=== PATIENT | male | born 1980 | race Two or more races ===

== ENCOUNTER 2018-05-05 01:02 | Emergency (ER) | payer BC, MEDICAID ==
[~2018-05-05] VITALS: Ht 170.2 cm; Wt 72.1 kg
[~2018-05-05 01:02] MED LIST: BACTRIM-DS1 EA ORAL; KEFLEX500 MG ORAL; NORCO 5-325 TA1 EACH ORAL; VALIUM10 MG ORAL
[2018-05-05] MEDS ORDERED: NKM (01:17)
[2018-05-05 01:30] VITALS: BP 113/71
--- NOTE | 2018-05-05 01:30 | NUR ---
ED Nurse Note: RECIEVED PT BIBA FROM HOME WITH C/O NECK AND POSTERIOR HEAD PAIN S/P FELL IN SHOWER ABOUT 5PM, DENIES K.O BUT C/O PAIN AT 10/10, PT IS ANXIOUS AND ASKING FOR "SHOT" MEDICATION, AT BEDSIDE TO ASSESS, INFORMED PT OF MED TO BE GIVEN AND PT ANGRY, TOLD PT MOTRIN AND PT WANTS STRONGER MEDICATION, PT TOOK OF ALL EQUIPMENT AND AMBULATED IN DEPARTMENT WHEN HE ARRIVED HE STATED HE COULD NOT WALK, PT IS NOW LEAVING MD [facility] AND CHARGE NURSE AWARE. PT AMBULATING WELL WITH STEADY GAIT, NO SOB OR LABORED BREATHING NOTED. PT REFUSED TO SIGN AMA FORM.
--- NOTE | 2018-05-05 01:31 | Emergency Room Report ---
History of Present Illness General Chief Complaint: Multiple Trauma/Fall Source: Patient, Medical Record Present Illness HPI Is a 37-year-old male with chronic pain issue. He presents with chief complaint of migraine, neck pain, back pain status post fall. He claimed that he was getting out of the shower and slipped on the water and hit his head. This occurred just prior to arrival. Pain is 10 out of 10. So pain for the point that he can't walk. No nausea no vomiting. No fever chills but nothing made it better. Movement makes it worse. Allergies: Coded Allergies: No Known Allergies (Unverified , 07/17/12) Patient History Past Medical History: see triage record, old chart reviewed Past Surgical History: none Pertinent Family History: none Social History: Denies: smoking Immunizations: other Reviewed Nursing Documentation: PMH: Agreed; PSxH: Agreed Nursing Documentation-PMH Hx Gastrointestinal Problems: Yes - Chrohns. History Of Psychiatric Problem: Yes - anxiety Hx Neurological Problems: Yes - Migraine headaches, chronic back pain Hx Seizures: Yes Review of Systems Eye: Denies: eye pain, blurred vision ENT: Denies: ear pain, nose congestion, throat swelling Respiratory: Denies: cough, shortness of breath Cardiovascular: Denies: chest pain, palpitations Gastrointestinal: Denies: abdominal pain, diarrhea, nausea, vomiting Musculoskeletal: Reports: back pain, joint pain Skin: Denies: rash Neurological: Denies: headache, numbness Endocrine: Denies: increased thirst, increased urine Hematologic/Lymphatic: Denies: easy bruising All Other Systems: negative except mentioned in HPI Physical Exam Vital Signs Date Time Temp Pulse Resp B/P (MAP) Pulse Ox O2 Delivery O2 Flow Rate FiO2 05/05/18 01:12 98.1 77 16 113/71 98 Room Air vitals normal Sp02 EP Interpretation: reviewed, normal General Appearance: well appearing, no apparent distress, alert Head: normocephalic, atraumatic Eyes: bilateral eye PERRL, bilateral eye EOMI ENT: hearing grossly normal, normal pharynx Neck: full range of motion, supple, no meningismus, tender - Diffuse tenderness. No evidence of any trauma Respiratory: chest non-tender, lungs clear, normal breath sounds Cardiovascular #1: regular rate, rhythm, no murmur Gastrointestinal: normal bowel sounds, non tender, no mass, no organomegaly, no bruit, non-distended Musculoskeletal: back normal, gait/station normal, normal range of motion Psychiatric: mood/affect normal Skin: warm/dry Medical Decision Making Diagnostic Impression: Primary Impression: Multiple injuries due to trauma Additional Impressions: Neck pain Drug-seeking behavior ER Course Patient with drug seeking behavior. He has chronic pain. He is prescribed Suboxone, Soma, Xanax. Patient claimed that he is not taking Suboxone anymore. He's been on Suboxone for a year. He just got 90 tablets on 05/02/2018. He claimed that he threw them away. He requesting a shot of pain medication. I offered the patient Motrin and x-rays to confirm any trauma. Patient was agitated and combative because refuse to give him any narcotics. I explained to the patient that since he is on Suboxone, opiates would not be helpful. I am uncomfortable prescribing more pain medication on the controlled substance he is already taking. Initially patient required wheelchair to get to the bed. But he was able to hop off the bed and confront me at the doctor's desk. He walk without any difficulty. Last Vital Signs Date Time Temp Pulse Resp B/P (MAP) Pulse Ox O2 Delivery O2 Flow Rate FiO2 05/05/18 01:12 98.1 77 16 113/71 98 Room Air Status: unchanged Disposition: AGAINST MEDICAL ADVICE Condition: Stable Jose Esquivel MD May 05, 2018 01:31
== END 2018-05-05 01:30 | disposition left against medical advice (07) ==
LOC: EMR 01:25
DX: G89.29 Other chronic pain (principal); G43.909 Migraine, unspecified, not intractable, without status migrainosus; M54.2 Cervicalgia; M54.9 Dorsalgia, unspecified; W18.2XXA Fall in (into) shower or empty bathtub, initial encounter; Y92.9 Unspecified place or not applicable; Z76.5 Malingerer [conscious simulation]
CPT/HCPCS: 99282

== ENCOUNTER 2019-04-02 20:38 | Emergency (ER) | payer MEDICAID ==
[~2019-04-02] VITALS: Ht 170.2 cm; Wt 67.6 kg
[~2019-04-02 20:38] MED LIST changes: +NKM
[2019-04-02] MEDS ORDERED: XANAX2 MG ORAL (20:57)
[2019-04-02 21:00] VITALS: BP 113/73
--- NOTE | 2019-04-02 21:00 | NUR ---
ED Nurse Note: Pt walked into ED for c/o anxiety for the past two days, worse today. Pt also states he is out of his medication since . Pt is aaox4, no caridac or respiratory distress noted.
[2019-04-02] MEDS ORDERED: BUSPAR10 MG ORAL (21:14)
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
[2019-04-02 21:50] VITALS: BP 120/71
--- NOTE | 2019-04-02 21:50 | NUR ---
ER DISCHARGE NOTE: Pt is cleared to be DC per ERMD. Pt became aggressive and demanding ativan. Pt also states he has a migraine and needs "strong pain medicine" now, migraine was not initially mentioned on assessment. Pt refused to leave unless ERMD prescribed ativan and yelling at ERMD/RN. Security called. Pt refused to sign DC paperwork. Pt is aaox4, VSS, ID band removed. Pt able to ambualte with steady gait. Security escorted pt out of ED.
--- NOTE | 2019-04-02 21:50 | NUR ---
ED Nurse Note: Pt given prescription for buspirone. Pt preceeded to throw prescription paper in the sink, arguing with staff.
== END 2019-04-02 21:50 | disposition home or self-care (01) ==
LOC: EMR 21:10
DX: F41.9 Anxiety disorder, unspecified (principal); Z76.5 Malingerer [conscious simulation]; G40.909 Epilepsy, unspecified, not intractable, without status epilepticus
CPT/HCPCS: 99282